=== PATIENT | female | born 1925 | race Caucasian/White ===

== ENCOUNTER 2017-06-24 08:27 | Outpatient (CLI) | payer OTHER ==
[~2017-06-24 08:27] MED LIST: ALPHAGAN P5 ML; ANTIVERT25 M1 PO; DIOVAN40 MG; SIMVASTATIN5 MG; VASOTEC5 MG PO
== END 2017-06-24 09:06 | disposition home or self-care (01) ==
LOC: SONOGRAMA 08:27
DX: R10.11 Right upper quadrant pain (principal)